=== PATIENT | female | born 2005 | race Caucasian/White ===

== ENCOUNTER 2023-07-15 15:10 | Emergency (ER) | payer OTHER ==
[~2023-07-15] VITALS: Ht 160 cm; Wt 51.3 kg
[2023-07-15] MEDS ORDERED: CORTISONE60 GM TOP (17:09)
[2023-07-15] MEDS ORDERED: BENADRYL25 MG PO (17:09)
== END 2023-07-15 17:21 | disposition home or self-care (01) ==
LOC: EMR PED 15:10 → ER 15:10 → EMR PED 17:18
DX: T63.481A Toxic effect of venom of other arthropod, accidental (unintentional), initial encounter (principal)
CPT/HCPCS: 96372; 99284; J1100; J1200